=== PATIENT | male | born 1945 | race Caucasian/White ===

== ENCOUNTER 2025-02-18 15:58 | Outpatient (CLI) | payer OTHER | END 2025-02-18 15:59 | disposition home or self-care (01) | LOC: CT 15:58 | PROVIDERS: ATTEND Otolaryngology Plastic Surgery within the Head & Neck | DX: H71.91 Unspecified cholesteatoma, right ear (principal); Z98.890 Other specified postprocedural states; H74.8X2 Other specified disorders of left middle ear and mastoid; M79.89 Other specified soft tissue disorders | CPT/HCPCS: 70480 ==